=== PATIENT | male | born 1950 | race Caucasian/White ===

== ENCOUNTER 2020-10-13 12:05 | Emergency (ER) | payer OTHER ==
[~2020-10-13] VITALS: Ht 172.7 cm; Wt 108.9 kg
[2020-10-13 12:20] VITALS: BP_SYST 202
--- NOTE | 2020-10-13 12:20 | NUR ---
BROUGHT IN BY [facility], TRIAGED, AWAITING AVAILABLE BED IN ER.
--- NOTE | 2020-10-13 13:58 | NUR ---
RESTING QUIETLY IN AMBULANCE RIG. VSS
--- NOTE | 2020-10-13 15:41 | NUR ---
PT. MOVED TO ED [facility] BED 2
--- NOTE | 2020-10-13 15:49 | NUR ---
PT BIBA A&Ox3 PT BEGAN TO FEEL WEAK ONE DAY AGO FAMILY DECIDED TODAY TO CALL DUE TO THE INCREASED WEAKNESS PT BEGAN EXPERIENCING SUDDEN ONSET OF WEAKNESS x1 DAY DENIES ALL PAIN PT STATES "I FEEL WEAK AND TIRED" PT. HAS ALLERGY TO PENICILLIN A HISTORY OF DIABETES AND HYPERTENSION. PT BLOOD SUGAR ON SCENE WAS 270. PT BLOOD SUGAR ONSCENE WAS 216/137. WILL CONTINUE TO MONITOR PT.
--- NOTE | 2020-10-13 16:21 | NUR ---
Blood for labwork drawn from LEFT BY LAB AT BEDSIDE. Patient tolerated WELL.
--- NOTE | 2020-10-13 16:29 | NUR ---
RADIOLOGY AT BEDSIDE FOR CHEST XRAY
[2020-10-13 16:41] LABS: BASOPHILS # (AUTO) 0.1 K/uL (0.0-0.2); BASOPHILS % (AUTO) 1.2 % (0.0-2.0); EOSINOPHILS # (AUTO) 0.2 K/uL (0.0-0.4); EOSINOPHILS % (AUTO) 2.7 % (0.0-4.0); HEMATOCRIT 49.1 % (36-54); LYMPHOCYTES # (AUTO) 1.4 K/uL (1.0-5.5); LYMPHOCYTES % (AUTO) 15.5 % (20.5-51.5); MEAN CORPUSCULAR HEMOGLOBIN 28 pg (27-31); MEAN CORPUSCULAR HGB CONC 33 % (32-36); MEAN CORPUSCULAR VOLUME 85 fL (79.0-98.0); MONOCYTES # (AUTO) 0.7 K/uL (0.0-1.0); MONOCYTES % (AUTO) 7.8 % (1.7-9.3); NEUTROPHILS # (AUTO) 6.7 K/uL (1.8-7.7); NEUTROPHILS % (AUTO) 72.8 % (40.0-70.0); PLATELET COUNT (AUTO) 246 K/uL (130-430); RED CELL DISTRIBUTION WIDTH 14.6 % (9.0-15.0); WHITE BLOOD COUNT (AUTO) 9.3 K/uL (4.8-10.8)
[2020-10-13 17:01] LABS: CALCIUM 8.1 mg/dL (8.4-11.0); CREATININE 0.97 mg/dL (0.55-1.30); POTASSIUM 3.4 mmol/L (3.5-5.1)
[2020-10-13 17:06] LABS: ALBUMIN 2.6 g/dL (3.4-4.8); TOTAL BILIRUBIN 0.5 mg/dL (0.0-1.0)
--- NOTE | 2020-10-13 17:17 | NUR ---
URINE COLLECTED VIA BEDSIDE URINAL
--- NOTE | 2020-10-13 18:03 | NUR ---
PT AMBULATED WITH MINIMAL ASSISTANCE MD PEÑALOZA AWARE AND WILL ORDRER A WALKER FOR PT TO UTILIZE AT HOME
--- NOTE | 2020-10-13 18:18 | NUR ---
Patient given written and verbal discharge instructions and verbalizes understanding. ER MD PEÑALOZA discussed with patient the results and treatment provided. Patient in stable condition. ID arm band removed. IV catheter removed intact and dressing applied, no active bleeding. Rx of WALKER ASSITANCE DEVICE given. Patient educated on pain management and to follow up with PMD. Pain Scale 0/10 Opportunity for questions provided and answered.
[2020-10-13 18:20] VITALS: BP_SYST 180
== END 2020-10-13 18:20 | disposition home or self-care (01) ==
LOC: SED 12:05
DX: R53.1 Weakness (principal); I10 Essential (primary) hypertension; E11.9 Type 2 diabetes mellitus without complications; Z90.49 Acquired absence of other specified parts of digestive tract
CPT/HCPCS: 36415; 71045; 80053; 81002; 82550-TC; 82962; 83880; 84484; 85025; 93005; 99285